=== PATIENT | female | born 1970 | race Caucasian/White ===

== ENCOUNTER 2023-06-07 14:23 | Emergency (ER) | payer OTHER ==
[~2023-06-07] VITALS: Ht 152.4 cm; Wt 70.3 kg
[2023-06-07] MEDS ORDERED: TOPROL XL25 M1 (15:18)
[2023-06-07] MEDS ORDERED: ROBAXIN (15:20)
[2023-06-07] MEDS ORDERED: ALPRAZOLAM2 M1 PO (15:21)
[2023-06-07] MEDS ORDERED: AMBIEN10 MG PO (15:21)
== END 2023-06-07 19:52 | disposition home or self-care (01) ==
LOC: ER 14:23
PROVIDERS: General Practice
DX: R10.9 Unspecified abdominal pain (principal); R11.10 Vomiting, unspecified; I10 Essential (primary) hypertension; Z20.822 Contact with and (suspected) exposure to COVID-19; Z88.6 Allergy status to analgesic agent

== ENCOUNTER 2025-02-14 16:18 | Emergency (ER) | payer OTHER ==
[~2025-02-14] VITALS: Ht 152.4 cm; Wt 70.3 kg
[~2025-02-14 16:18] MED LIST: ALPRAZOLAM2 M1 PO; AMBIEN10 MG PO; ROBAXIN; TOPROL XL25 M1
[2025-02-14] MEDS ORDERED: PROZAC20 MG (16:28)
[2025-02-14] MEDS ORDERED: ROBAXIN (16:29)
[2025-02-14] MEDS ORDERED: INDERAL XL80 MG (16:30)
[2025-02-14] MEDS ORDERED: ORPHENADRINE CITRATE 30 MG/ML AMPUL IM ONE (17:00)
[2025-02-14] MEDS ORDERED: LORazepam 2 MG/ML VIAL IV PUSH ONE (17:00)
[2025-02-14] MEDS ORDERED: 0.9 % SODIUM CHLORIDE 1,000 ML IV SCH (17:00)
[2025-02-14] MEDS ORDERED: ORPHENADRINE CITRATE 30 MG/ML AMPUL ONE (17:44)
[2025-02-14] MEDS ORDERED: LORazepam 2 MG/ML VIAL ONE (17:46)
[2025-02-14 18:08] LABS: HEMATOCRIT 35.3 % (36.0-45.00); HEMOGLOBIN 11.8 g/dL (12.0-15.00); MEAN CELL VOLUME 85.5 fL (80.00-100.00); MEAN CORPUSCULAR HEMOGLOBIN 28.6 pg (27.00-32.0); MEAN CORPUSCULAR HGB CONC 33.4 g/dl (32.0-36.0); PLATELET COUNT 347 K/uL (150-450); RED BLOOD COUNT 4.13 M/uL (4.00-6.00); RED CELL DISTRIBUTION WIDTH 16.8 % (11.5-14.5)
[2025-02-14 18:43] LABS: ALBUMIN 3.3 gm/dL (3.4-5.0); BILIRUBIN TOTAL 0.12 mg/dL (0.3-1.2); CALCIUM 9.1 mg/dL (8.5-10.1); CREATININE SERUM 0.64 mg/dL (0.55-1.02); GFR 97.07; GLOBULINA 3.9 G/DL (2.4-3.5); POTASSIUM 4.1 mEq/L (3.5-5.1); TOTAL PROTEIN 7.2 gm/dL (6.4-8.2)
[2025-02-15] MEDS ORDERED: METHOCARBAMOL500 MG PO (16:13)
== END 2025-02-14 19:16 | disposition home or self-care (01) ==
LOC: ER 16:18
PROVIDERS: General Practice
DX: R25.9 Unspecified abnormal involuntary movements (principal); R53.81 Other malaise

== ENCOUNTER → 2025-02-19 | Emergency (ER) | payer OTHER ==
[~2025-02-19] VITALS: Ht 152.4 cm; Wt 70.3 kg
[~2025-02-19] MED LIST changes: +INDERAL XL80 MG; +LORazepam 2 MG/ML VIAL IV PUSH ONE; +LORazepam 2 MG/ML VIAL ONE; +METHOCARBAMOL500 MG PO; +ORPHENADRINE CITRATE 30 MG/ML AMPUL IM ONE; +ORPHENADRINE CITRATE 30 MG/ML AMPUL ONE; +PROZAC20 MG
== END | disposition home or self-care (01) ==
LOC: ER 12:09
DX: G24.8 Other dystonia (principal)

== ENCOUNTER 2025-02-28 15:02 | Emergency (ER) | payer OTHER ==
[~2025-02-28] VITALS: Ht 177.8 cm; Wt 68.0 kg
[~2025-02-28 15:02] MED LIST changes: -LORazepam 2 MG/ML VIAL IV PUSH ONE; -LORazepam 2 MG/ML VIAL ONE; -ORPHENADRINE CITRATE 30 MG/ML AMPUL IM ONE; -ORPHENADRINE CITRATE 30 MG/ML AMPUL ONE
[2025-02-28] MEDS ORDERED: LORazepam 2 MG/ML VIAL IM STA (16:00)
[2025-02-28] MEDS ORDERED: LORazepam 2 MG/ML VIAL ONE (16:03)
[2025-02-28] MEDS ORDERED: ORPHENADRINE CITRATE 30 MG/ML AMPUL IM STA (17:05)
[2025-02-28] MEDS ORDERED: ORPHENADRINE CITRATE 30 MG/ML AMPUL ONE (17:11)
== END 2025-02-28 19:22 | disposition home or self-care (01) ==
LOC: ER 15:02
DX: F41.1 Generalized anxiety disorder (principal); R56.9 Unspecified convulsions; I10 Essential (primary) hypertension